=== PATIENT | female | born 1990 | race Hispanic/Latino ===

== ENCOUNTER 2020-09-12 15:32 | Emergency (ER) | payer BC ==
[2020-09-12] MEDS ORDERED: LORAZEPAM 1 MG TABLET ONE (16:23)
== END 2020-09-12 17:09 | disposition home or self-care (01) ==
LOC: EDH 15:32
DX: F41.1 Generalized anxiety disorder (principal); F32.9 Major depressive disorder, single episode, unspecified; Z98.890 Other specified postprocedural states
CPT/HCPCS: 93005

== ENCOUNTER 2022-03-28 09:10 | Emergency (ER) | payer BC ==
[~2022-03-28] VITALS: Ht 152.4 cm; Wt 88.5 kg
[2022-03-28 09:32] LABS: BASOPHILS % (AUTO) 0.3 % (0.0-5.0); EOSINOPHILS % (AUTO) 2.2 % (0.0-8.0); HEMATOCRIT 42.8 % (36-48); LYMPHOCYTES % (AUTO) 19.4 % (21.0-51.0); MEAN CORPUSCULAR HGB CONC 32.5 g/dL (32.0-36.0); MEAN CORPUSCULAR VOLUME 86.3 fL (79-99); MONOCYTES % (AUTO) 6.4 % (3.0-13.0); NEUTROPHILS % (AUTO) 71.2 % (40.0-77.0); PLATELET COUNT (AUTO) 301 K/uL (130-400); RED BLOOD CELL COUNT(AUTO) 4.96 MIL/uL (4.00-5.50); RED CELL DISTRIBUTION WIDTH 12.9 % (11.0-15.5); WHITE BLOOD COUNT (AUTO) 7.8 K/uL (4.8-10.8)
[2022-03-28 09:41] LABS: BILIRUBIN,TOTAL 0.4 mg/dL (0.2-1.0); CREATININE 0.8 mg/dL (0.5-1.5); TOTAL PROTEIN, SERUM 7.5 g/dL (6.0-8.3)
[2022-03-28] MEDS ORDERED: LIDOCAINE HCL 2% VISCOUS 15 ML UDCUP PO SCH (10:00)
[2022-03-28] MEDS ORDERED: DICYCLOMINE HCL 10 MG/5 ML ML PO SCH (10:00)
[2022-03-28] MEDS ORDERED: MAG/ALUM/SIMETH 30 ML UDCUP PO SCH (10:00)
[2022-03-28 10:03] LABS: APPEARANCE,URINE Clear (CLEAR); BILIRUBIN,URINE Negative (NEGATIVE); COLOR,URINE Yellow (YELLOW); GLUCOSE, URINE (UA) Negative (NEGATIVE); KETONES,URINE Negative (NEGATIVE); LEUKOCYTE ESTERASE ,URINE Negative (NEGATIVE); NITRATE,URINE Negative (NEGATIVE); OCCULT BLOOD,URINE Negative (NEGATIVE); PROTEIN,URINE Negative (NEGATIVE); UROBILINOGEN,URINE 0.2 mg/dL (0.2-1.0)
[2022-03-28 10:20] LABS: HCG,QUAL RESULT NEGATIVE (NEGATIVE)
[2022-03-28] MEDS ORDERED: KETOROLAC 15MG/ML VIAL (15MG/ML) IV ONE (11:00)
[2022-03-28] MEDS ORDERED: MORPHINE 4 MG SYG IVP ONE (11:00)
[2022-03-28] MEDS ORDERED: ONDANSETRON 4MG INJ IVP ONE (11:00)
[2022-03-28 11:20] VITALS: BP 127/78
[2022-03-28] MEDS ORDERED: ACET-2079 PO (11:26)
== END 2022-03-28 11:37 | disposition home or self-care (01) ==
LOC: EDH 09:10
DX: K29.70 Gastritis, unspecified, without bleeding (principal); Z98.890 Other specified postprocedural states; Z90.89 Acquired absence of other organs
CPT/HCPCS: 36415; 80053; 81003; 81025; 83690; 85025; 96374; 96375; 99284; J1885; J2270; J2405

== ENCOUNTER 2024-09-18 13:29 | Emergency (ER) | payer BC ==
[~2024-09-18] VITALS: Ht 152.4 cm; Wt 91.2 kg
[~2024-09-18 13:29] MED LIST: ACET-2079 PO
--- NOTE | 2024-09-18 14:33 | ERN ---
General Chief Complaint: CHEST PAIN Stated Complaint: CHEST PAIN Time Seen by MD: 14:23 History of Present Illness Initial Comments HISTORY OF PRESENT ILLNESS: 34-year-old female with past medical history of anxiety, depression, hyperlipidemia presented to ED with complaints of sudden- onset of left sided chest pain 5 hours back workplace. She reports that she is in a lot of stress at work place, and when she developed the chest pain she went home tried to rest but chest pain got worsened while lying down. His pain was 8/10 in intensity, left-sided, which comes and goes. She states that she has underlying shortness of breath especially when she is anxious and did not think it has worsened now. She denies fever, acute cough, nausea, vomiting, dysuria, loose stools. Timing/Duration: 4-6 hours Severity/Quality: moderate Location: central Radiation: no radiation Activities at Onset: emotional stress Prior Chest Pain/Cardiac Cedric: no prior chest pain Modifying Factors: lying down Past Medical History Past Medical History: Anxiety, Depression, High Cholesterol Past Surgical History: Tonsillectomy, Social History Social History: Negative, Lives with family Female( History) History: Not Applicable LMP: Sep 16, 2024 ROS Dictation REVIEW OF SYSTEMS Positive for anxiety and chest pain CONSTITUTIONAL: Denies fevers, chills, or night sweats. No unintentional weight loss reported. ENT: No hearing loss, otalgia, otorrhea, rhinitis, rhinorrhea, hoarseness, or sore throat. CARDIOVASCULAR: Denies any exertional angina, dyspnea on exertion, orthopnea, paroxysmal nocturnal dyspnea, palpitations claudication. PULMONARY: Denies any shortness of breath, cough, phlegm / sputum, hemoptysis, pleuritic chest pain. SLEEP: Denies morning headaches, daytime somnolence or napping. Denies difficulty falling asleep, staying asleep, waking from sleep. Denies knowledge of snoring. GASTROINTESTINAL: Denies any type of dysphagia to either liquids or solids. Denies nausea, vomiting, abdominal pain, diarrhea, constipation, blood in stools . NEUROLOGICAL: Denies headache, motor weakness, sensory deficit, vertigo / spinning sensation, gait abnormalities, or tremors. GENITOURINARY: Denies frequency, urgency, nocturia, hematuria or incontinence, low urinary stream, straining to void, urinary intermittency or hesitancy ENDOCRINOLOGY: Denies polyuria, polydipsia, polyphagia or heat / cold intolerance. HEMATOLOGY: Denies thrombophilia / previous clots, or coagulopathy / bleeding disorders. ONCOLOGIC: Denies personal history of malignancy. DERMATOLOGIC: Denies rashes or pruritus. PSYCHIATRIC: Denies any suicidal or homicidal ideation. Denies hallucinations. Physical Exam Physical Exam Dictation PHYSICAL EXAM GENERAL APPEARANCE: Well nourished . Awake and alert. Oriented to time, place and person. No acute cardiopulmonary distress. HEENT: Head normocephalic , atraumatic. Sclera anicteric . Pupils are round and reactive. Extraocular movements intact . No conjunctival injection. No nasal congestion. No throat congestion .Oral mucosa moist. NECK: Supple. No JVD. No thyromegaly. No submental, submandibular, pre- /postauricular, occipital or supraclavicular lymphadenopathy. No carotid bruits. CHEST: Normal chest expansion. No Telemetry. LUNGS: Clear to auscultation bilaterally . No rales, rhonchi or any wheezing. Equal tactile fremitus. Resonant to percussion . CARDIOVASCULAR: Regular rate and rhythm. S1 and S2 normal. No rubs, murmurs or gallops. ABDOMEN: Soft, nontender, and nondistended. There is no rebound tenderness, voluntary guarding, or rigidity. No hepatosplenomegaly. Bowel sounds normal in all four quadrants . NEUROLOGICAL: Cranial nerves II-XII grossly intact. Motor is 5/5 in bilateral upper and lower extremities . No sensory deficits. EXTREMITIES: No edema, No cyanosis , No clubbing. Good capillary refill. SKIN: No skin breakdown. No rashes or lesions . PSYCHIATRY: Normal affect .No auditory or visual hallucinations. Normal speech. No dysarthria. Results Laboratory and Microbiology Lab and Micro Result Laboratory Tests Test 09/18/24 14:35 White Blood Count 7.7 K/uL (4.8-10.8) Red Blood Count 4.88 MIL/uL (4.00-5.50) Hemoglobin 13.9 g/dL (12.0-16.0) Hematocrit 42.5 % (36-48) Mean Corpuscular Volume 87.1 fL (79-99) Mean Corpuscular Hemoglobin 28.5 pg (27.0-33.0) Mean Corpuscular Hemoglobin Concent 32.7 g/dL (32.0-36.0) Red Cell Distribution Width 12.8 % (11.0-15.5) Platelet Count 337 K/uL (130-400) Mean Platelet Volume 9.5 fL (7.5-10.5) Nucleated Red Blood Cells 0.0 % (0.0-0.19) Sodium Level 139 mmol/L (136-145) Potassium Level 3.4 mmol/L (3.5-5.1) L Chloride Level 101 mmol/L (101-111) Carbon Dioxide Level 29 mmol/L (21-32) Blood Urea Nitrogen 13 mg/dL (7-18) Creatinine 0.8 mg/dL (0.5-1.0) Glomerular Filtration Rate Calc 98 mL/min (>90) Random Glucose 79 mg/dL (70-105) Total Calcium 9.1 mg/dL (8.5-10.1) Troponin I High Sensitivity 34 ng/L (4-50) EKG/XRAY/US/CT/MRI EKG Comment EKG, 09/18/2024, 2:42 p.m. Sinus rhythm, ventricular rate 77 ME interval 152, QTC [address] elevation X-RAY Comment Prominent bronchial and bronchiolar markings suggestive of chronic bronchitis Orders, Meds, Vital Signs Orders Procedure Category Date Status Time 12 Lead Ekg Tracing- EKG 09/18/24 Complete Technical 14:19 Bedside Troponin-I LAB.ER 09/18/24 In Process (Poc) 14:19 Chest 1vw RAD 09/18/24 Resulted 14:19 Hydroxyzine 50mg Vial PHA 09/18/24 Complete (Atarax 50mg Inj) 14:26 Cbc Without LAB 09/18/24 Complete Differential 14:26 Basic Metabolic Panel LAB 09/18/24 Complete 14:26 Potassium Bicarb/Cit PHA 09/18/24 Complete Ac 25meq (K-Lyte Ta 15:30 Ipratropium/Albuterol PHA 09/18/24 Complete Neb (Duoneb) 16:00 Troponin I High LAB 09/18/24 Complete Sensitivity 15:48 Current Medications Medications (Trade) Dose Ordered Sig/Howie Route PRN Reason Start Time Stop Time Status Last Admin Dose Admin Albuterol (DUOneb) 1 UDVIAL ONCE ONCE 09/18/24 16:00 09/18/24 16:01 DC Hydroxyzine HCl (ATArax 50MG INJ) 25 mg ONCE STAT IM 09/18/24 14:26 09/18/24 14:27 DC 09/18/24 15:37 Potassium Bicarbonate (K-Lyte Tablet Eff 25 Meq Tablet.eff) 25 meq ONCE ONCE PO 09/18/24 15:30 09/18/24 15:31 DC 09/18/24 15:37 Vital Signs Date Time Temp Pulse Resp B/P (MAP) Pulse Ox O2 Delivery O2 Flow Rate FiO2 09/18/24 15:51 98.2 87 16 138/93 98 Room Air* 0 21 09/18/24 13:34 98.8 120 20 173/90 98 Room Air 0 Differential diagnosis : Acute NE, musculoskeletal chest wall pain, anxiety, panic attack Rationale: Tests considered and ordered secondary to shared decision making include: I will re-evaluate the patient after treatment and diagnostic exams have returned to determine whether they require further testing, can be safely discharged home, or need admission for further treatment and evaluation. Given the social determinants of health affecting care, including literacy, access to medical care, prescription drug management, and [id number] drugs, I will ensure that treatment plans are tailored accordingly. There are no social concerns with this patient. Risk of complication and/or morbidity or mortality of patient management: None Need for hospitalization: Patient does not meet criteria for hospitalization. Need for emergency major/minor surgery: No Prescription drug management Prescriptions will include symptomatic care Medications-Per medication reconciliation Previous outside records reviewed: Old ER visits. Patient's prior external medical records from other ER visits were reviewed by me as indicated. Prior testing and results from previous visits were reviewed. Prior tests were taken into account with medical decision making and resource utilization, independent historian/historians were used to obtain complete medical history. I independently interpreted the test that were performed, results were reviewed by me and considered findings on radiology. Medical management and examination interpretation discussions was done by me with other qualified healthcare professionals as indicated for the patient's care. Revaluation: Patient felt a lot calmer after hydroxyzine. Labs remarkable for mild hypokalemia. Requested potassium effervescent stat. Chest x-ray with a prominent bronchial markings suggestive of chronic bronchitis. Patient also complains of chronic cough without exacerbation. Treated with nebulization stat. Disposition : Home HEART Score for Major Cardiac Events RESULT SUMMARY: 1 points Low Score (0-3 points) Risk of MACE of 0.9-1.7%. INPUTS: History > 0 = Slightly suspicious EKG > 0 = Normal Age > 0 = <45 Risk factors > 1 = 1-2 risk factors Initial troponin > 0 = ?normal limit DX & DISP Departure Impression: Primary Impression: Acute nonspecific chest pain with low risk of coronary artery disease Additional Impressions: Bronchitis, Anxiety and depression Critical Time: 30 minutes Condition: Stable Assign Patient to: Primary care physician Additional Instructions: Follow-up with primary care provider in 1-2 days Take medications as directed here in the emergency room. It is okay to continue home medications unless otherwise discussed during your visit in the emergency room today. Increase oral hydration. If a wound culture or urine culture was ordered here in the emergency room department, please follow-up with primary care provider and advised them to get reports from our facility. If you had any Moi wrap/splints that were applied here placed to not remove them until you see your primary care physician. Return to your nearest emergency room if symptoms worsen or if there is no improvement. Call 911 if you need immediate assistance. Referrals: KESHIA SAEZ MD (PCP) Time of Disposition: 16:21 I WAS PRESENT AND PARTICIPATED IN THE CARE OF THIS PATIENT ALONGSIDE WITH THE RESIDENT PHYSICIAN. I HAVE REVIEWED AND PERSONALLY MADE AND APPROVED THE MANAGEMENT PLAN THAT IS DOCUMENTED IN THE NOTE BY MYSELF WITH THE RESIDENT PHYSICIAN. I ACKNOWLEDGED FOR RESPONSIBILITY FOR THE PATIENT'S MANAGEMENT PLAN. GENE BOND MD Sep 18, 2024 14:33 JORGE FERNANDEZ MD Sep 18, 2024 16:21
--- NOTE | 2024-09-18 14:44 | EKG ---
[facility] Test Date: 2024-09-18 Test Time: 14:42:13 Pat Name: GARY HARRIS Department: ED Room: Gender: F [employer] Helper: [id number] : 1990 Requested By: GENE BOND Order Number: [id number] Reading MD: Alcides Nugetn Measurements Intervals [place] Rate: 77 P: 44 IN: 152 QRS: 10 QRSD: 79 T: 6 QT: 369 QTc: 418 Interpretive Statements Sinus rhythm Compared to ECG 09/12/2020 15:31:43 Sinus tachycardia no longer present Electronically Signed On 09-18-2024 19:10:01 [employer] by Alcides Nugent Please click the below link to view image of tracing.
[2024-09-18 14:51] LABS: HEMATOCRIT 42.5 % (36-48); MEAN CORPUSCULAR HEMOGLOBIN 28.5 pg (27.0-33.0); MEAN CORPUSCULAR HGB CONC 32.7 g/dL (32.0-36.0); MEAN CORPUSCULAR VOLUME 87.1 fL (79-99); RED BLOOD CELL COUNT(AUTO) 4.88 MIL/uL (4.00-5.50); RED CELL DISTRIBUTION WIDTH 12.8 % (11.0-15.5); WHITE BLOOD COUNT (AUTO) 7.7 K/uL (4.8-10.8)
[2024-09-18 15:06] LABS: CREATININE 0.8 mg/dL (0.5-1.0); POTASSIUM 3.4 mmol/L (3.5-5.1)
[2024-09-18] MEDS: PoTASSium BIcarbonate/CIT AC 25 MEQ TABLET.EFF PO ONE (15:37)
[2024-09-18] MEDS: hydrOXYzine 50MG VIAL 50 MG/ML VIAL IM STA (15:37)
--- NOTE | 2024-09-18 15:42 | HMCIMG ---
CHEST 1VW HISTORY: Chest pain COMPARISON: None FINDINGS: A frontal projection of the chest was obtained. No acute pulmonary infiltrates is seen. The heart is normal in size. Prominent interstitial markings are seen. No evidence of aortic calcification is seen. IMPRESSION: 1. No acute pulmonary infiltrate is seen.
[2024-09-18] MEDS: IpraTROPium/alBUTERol SULFATE 3 ML SOLUTION IH ONE (16:58)
[2024-09-18 16:59] VITALS: PULSE 69; RESP 18
[2024-09-18 17:21] VITALS: BP 140/71; PULSE 86; RESP 17; TEMP 98; O2SAT 100
[2024-09-18] MEDS ORDERED: HYDR-3830 PO (17:43)
== END 2024-09-18 18:00 | disposition home or self-care (01) ==
LOC: EDH 13:29
DX: J40 Bronchitis, not specified as acute or chronic (principal); R07.89 Other chest pain; F32.A Depression, unspecified; F41.9 Anxiety disorder, unspecified; E78.00 Pure hypercholesterolemia, unspecified; Z56.6 Other physical and mental strain related to work; Z90.89 Acquired absence of other organs; Z98.890 Other specified postprocedural states
CPT/HCPCS: 99284; 71045; 84484; 80048; 85027; 36415; 96372; 93005; 94640; J3410

== ENCOUNTER 2024-12-01 22:11 | Emergency (ER) | payer BC ==
[~2024-12-01] VITALS: Ht 152.4 cm; Wt 94.3 kg
[~2024-12-01 22:11] MED LIST changes: +HYDR-3830 PO
--- NOTE | 2024-12-01 22:36 | ERN ---
ED Note History of Present Illness Stated Complaint: C/O PAIN TO HEAD W/PAIN TO RT LEG AFTER FALL Chief Complaint: Mechanical Fall Time Seen by MD: 22:19 Time Seen by Midlevel: 22:19 Dictation: The patient is a 34-year-old female with no past medical history who presents to the emergency department with a frontal headache, right knee pain, right hip pain after accidentally falling back from a chair onset 830 p.m. patient denies any LOC, denies nausea or vomiting, denies use of blood thinners. Denies any neck pain, chest pain, back pain, abdominal pain or upper extremity pain. No other injuries reported. Allergies: Coded Allergies: No Known Drug Allergies (Unverified Allergy, Unknown, 09/12/20) Home Meds Active Scripts Ibuprofen (Ibuprofen) 600 Mg Tablet, 600 MG PO Q6H PRN for PAIN, #7 TAB Prov:PATRIC SOSA NETWORK ADMIN 12/02/24 Cyclobenzaprine HCl (Flexeril) 10 Mg Tab, 10 MG PO TID for muscle sstiffness, #14 TAB 0 Refills Prov:PATRIC SOSA 12/02/24 Hydroxyzine HCl (Hydroxyzine HCl) 10 Mg Tablet, 1 TAB PO BID for anxiety for 3 Days, #6 TAB 0 Refills Prov:GENE BOND MD 09/18/24 Acetaminophen with Codeine (Acetaminophen-Cod #3 Tablet) 1 Each Tablet, 1 EACH PO QID, #15 TAB Prov:DANIELA GOINS MD 03/28/22 Past Medical History Past Medical History: Unknown Surgical History: Unknown Social History: Negative, Lives with family History: Not Applicable LMP: Oct 17, 2024 RN Note Reviewed/Agreed w/PFSH: Yes Review of System Dictation Constitutional: Negative for fever,chills, and weight loss Eyes: Negative for injury, pain,redness, and discharge ENT: Negative for injury,pain or swelling Cardiovascular: Negative for chest pain, palpitations, and edema Respiratory: Negative for shortness of breath, cough, and wheezing, Abdomen/GI: Negative for abdominal pain, nausea, vomiting, diarrhea, and constipation Back: Negative for injury and pain : Negative for injury, bleeding and discharge MS/Extremity: Negative for injury and deformity positive for right knee pain Skin: Negative for rash, and discoloration Neuro: Negative for weakness, numbness, tingling, and seizure positive for headache Psych: Negative for suicide ideation, homicidal ideation, and hallucinations Initial Vital Sign VS Vital Signs Date Time Temp Pulse Resp B/P (MAP) Pulse Ox O2 Delivery O2 Flow Rate FiO2 12/01/24 22:13 98.1 98 20 145/95 98 Room Air 12/01/24 22:26 0 21 Physical Exam Dictation Vital Signs reviewed General Appearance: Alert, oriented x 3, no acute distress, well developed, nourished. Head and Face: non-traumatic. Eyes: PERRL, pink conjunctivas, eyelid no trauma, anterior chamber with arcus senilis. Ears: Pinnas intact and no signs of trauma or erythema ear canals clear and no discharge TM no erythema Nose: No discharge, no bleeding. Oropharynx: Mouth normal, tongue pink. pharynx clear,no erythema, tonsils no exudates, no abscesses noted, mucous membrane moist Neck: Supple, non-tender, no thyromegaly, no masses, no JVD, no bruits Breast:Deferred Chest:No tenderness, no crepitus, no paradoxical movement, no retractions Lungs:Clear, well-ventilated, symmetric, no rales, no wheezing, no rhonchi, no stridor, good breath sounds bilaterally Heart: Regular rate, regular rhythm, no murmur, no gallops Vascular: no peripheral edema, Abdomen: Soft, positive bowel sounds, nondistended, no guarding, nontender, no rebound, no masses no hepatomegaly, no splenomegaly, no Pacheco's sign, no hernias. Rectal: Deferred Genital: Deferred Neurological: Normal speech, motor function intact, sensory function intact Musculoskeletal: Neck nontender, full range of motion, back nontender, full range of motion, Extremities: nontender, full range of motion , right knee tenderness, CMS intact Skin: Color pink, dry, no turgor, no rash, no lacerations, no abrasions, no contusions. Lymphatic: Deferred Results (Laboratory/Radiology) Laboratory/Radiology Laboratory Tests Test 12/01/24 23:02 Urine HCG, Qualitative NEGATIVE (NEGATIVE) REASON: fall, headache ORDERING PHYSICIAN: PATRIC SOSA NETWORK ADMIN PROCEDURE: HEAD WO - CT HEAD/BRAIN W/O CONTRAST CT HEAD/BRAIN W/O CONTRAST HISTORY: Status post fall COMPARISON: None TECHNIQUE: Multiple sequential axial images of the head were obtained from the base of the skull through vertex. Patient was not given contrast through intravenous route. FINDINGS: The ventricles and extraventricular CSF spaces are nondilated for patient's age. There is no midline shift, mass effect or herniation. No acute intracranial bleed is seen. Visualized portion of the paranasal sinuses are grossly within normal limits. IMPRESSION: 1. No acute intracranial bleed is seen. CT was performed with one or more following dose reduction techniques: automated exposure control, adjustment of the mA and kv according to patient's size, or use of a iterative reconstruction technique. Labs Reviewed?: Yes ED Course ED Course Orders Procedure Category Date Status Time ,Urine Test LAB 12/01/24 Complete 22:30 Knee 3vws Rt RAD 12/01/24 Taken 22:30 Hip Unilat 2-3vw Right RAD 12/01/24 Taken 22:30 Ct Head/Brain W/O CT 12/01/24 Resulted Contrast 22:30 Acetaminophen 500mg PHA 12/01/24 Complete Tab (Tylenol 500mg T 22:30 Ketorolac 60mg/2ml PHA 12/02/24 Complete (Toradol 60mg/2ml) 00:30 Apply Moi Wrap (Er) CPOE 12/02/24 Transmitted 00:20 Current Medications Medications (Trade) Dose Ordered Sig/Howie Route PRN Reason Start Time Stop Time Status Last Admin Dose Admin Acetaminophen (TYLenol 500MG TAB) 1,000 mg ONCE ONCE PO 12/01/24 22:30 12/01/24 22:33 DC 12/01/24 22:52 Ketorolac Tromethamine (toRADol 60MG/ 2ML) 60 mg ONCE ONCE IM 12/02/24 00:30 12/02/24 00:31 DC 12/02/24 00:28 Vital Signs Date Time Temp Pulse Resp B/P (MAP) Pulse Ox O2 Delivery O2 Flow Rate FiO2 12/02/24 00:51 97.5 71 18 133/71 98 Room Air* 0 21 12/01/24 22:26 98.1 81 18 146/91 98 Room Air* 0 21 12/01/24 22:13 98.1 98 20 145/95 98 Room Air Medical Decision Making [facility] The patient is a 34-year-old female with no past medical history who presents to the emergency department with a frontal headache, right knee pain, right hip pain after accidentally falling back from a chair onset 830 p.m. patient denies any LOC, denies nausea or vomiting, denies use of blood thinners. Denies any neck pain, chest pain, back pain, abdominal pain or upper extremity pain. No other injuries reported. CT head unremarkable. X-ray showed no acute fractures. Patient continues neurologically intact. Reports improving in pain. In who will be discharged to follow up with PCP. Differential diagnosis: Hip fracture, knee dislocation, subdural hematoma, epidural hematoma, concussion Need for hospitalization: Patient does not meet criteria for hospitalization. There are no social concerns with this patient. DX & DISP Disposition: Discharge Departure Impression: Primary Impression: Fall Additional Impressions: Headache, Right knee sprain, Head contusion Condition: Stable Scripts Ibuprofen (Ibuprofen) 600 Mg Tablet 600 MG PO Q6H PRN for PAIN, #7 TAB Prov: PATRIC SOSA NETWORK ADMIN 12/02/24 Cyclobenzaprine HCl (Flexeril) 10 Mg Tab 10 MG PO TID for muscle sstiffness, #14 TAB 0 Refills Prov: PATRIC SOSA NETWORK ADMIN 12/02/24 Additional Instructions: Please follow up with your primary doctor in 1-2 days. If symptoms worsen please return to ER. FOLLOW-UP WITH PRIMARY CARE PROVIDER IN 1 TO 2 DAYS. TAKE MEDICATIONS DIRECTED HERE IN THE EMERGENCY ROOM. OKAY TO CONTINUE HOME MEDICATIONS UNLESS OTHERWISE DISCUSSED DURING YOUR VISIT IN THE EMERGENCY ROOM TODAY. RETURN TO YOUR NEAREST EMERGENCY ROOM IF SYMPTOMS WORSEN OR IF THERE IS NO IMPROVEMENT. CALL 911 IF YOU NEED IMMEDIATE ASSISTANCE. TAKE TYLENOL OR MOTRIN [id number] NEEDED AND IF NO CONTRAINDICATIONS ARE PRESENT. INCREASE ORAL HYDRATION. A WOUND CULTURE OR URINE CULTURE WAS ORDERED HERE IN THE EMERGENCY ROOM DEPARTMENT PLEASE FOLLOW-UP WITH PRIMARY CARE PROVIDER AND ADVISE THEM TO GET REPEAT PORTS FROM OUR FACILITY. IF YOU HAD ANY MOI WRAP/SPLINTS THAT WERE APPLIED HERE, PLEASE DO NOT REMOVE THEM UNTIL YOU SEE YOUR PRIMARY CARE OR SPECIALTY. Referrals: ERENDIRA BENNETT MD (PCP) Time of Disposition: 00:20 I have reviewed the case, and I agree with, Diagnosis and Plan I performed a substantive portion of the visit. I have reviewed and personally made and approve the management plan that is documented in the notes by myself with LEXX/resident. I acknowledged full responsibility for the patient's management plan. PATRIC SOSA Dec 01, 2024 22:36 RICH WINKLER DO Dec 02, 2024 03:08
[2024-12-01] MEDS: acetaMINOPHEN 500 MG TABLET PO ONE (22:52)
--- NOTE | 2024-12-01 23:48 | HMCIMG ---
CT HEAD/BRAIN W/O CONTRAST HISTORY: Status post fall COMPARISON: None TECHNIQUE: Multiple sequential axial images of the head were obtained from the base of the skull through vertex. Patient was not given contrast through intravenous route. FINDINGS: The ventricles and extraventricular CSF spaces are nondilated for patient's age. There is no midline shift, mass effect or herniation. No acute intracranial bleed is seen. Visualized portion of the paranasal sinuses are grossly within normal limits. IMPRESSION: 1. No acute intracranial bleed is seen. CT was performed with one or more following dose reduction techniques: automated exposure control, adjustment of the mA and kv according to patient's size, or use of a iterative reconstruction technique.
[2024-12-02] MEDS ORDERED: CYCL10TA16 PO (00:21)
[2024-12-02] MEDS ORDERED: IBUP-2070 PO (00:22)
[2024-12-02] MEDS: ketOROlac 60 MG VIAL (30MG/ML) IM ONE (00:28)
--- NOTE | 2024-12-02 00:49 | NUR ---
LEG BRACE WAS APPLIED TO RIGHT LEG. PT WAS GIVEN CRUTCHES AND GIEN VERBAL INSTRUCTION. PT WAS ABLE TO PROVIDE PHYSICAL RETURN DEMONSTRATION. WAS STEADY ON CRUTCHES. PT WAS ABLE TO AMBULATE OUT OF ED USING CRUTCHES
[2024-12-02 00:51] VITALS: BP 133/71; PULSE 71; RESP 18; TEMP 97.5; O2SAT 98
--- NOTE | 2024-12-02 11:13 | HMCIMG ---
RIGHT HIP, INCLUDING AP PELVIS, RADIOGRAPHS - 3 VIEWS INDICATION: Pain COMPARISON: None FINDINGS: No acute fracture or subluxation identified. Both femoral heads are well formed without osteochondral erosion or radiographic evidence for avascular necrosis. No radiopaque foreign body noted. IMPRESSION: No evidence for fracture or dislocation.
--- NOTE | 2024-12-02 11:15 | HMCIMG ---
RIGHT KNEE RADIOGRAPHS - 3 VIEWS INDICATION: Pain COMPARISON: None FINDINGS: AP, crosstable lateral, and oblique views. No acute fracture or dislocation identified. No significant joint effusion is present. Overlying soft tissues appear normal. IMPRESSION: No evidence for fracture or dislocation.
== END 2024-12-02 00:52 | disposition home or self-care (01) ==
LOC: EDH 22:11
DX: S83.8X1A Sprain of other specified parts of right knee, initial encounter (principal); S00.93XA Contusion of unspecified part of head, initial encounter; Z79.899 Other long term (current) drug therapy; W07.XXXA Fall from chair, initial encounter; Y93.89 Activity, other specified; Y92.89 Other specified places as the place of occurrence of the external cause; Y99.8 Other external cause status
CPT/HCPCS: 99284; 70450; 81025; 73502; 73562; 29530; 96372; J1885